=== PATIENT | female | born 1965 | race Caucasian/White ===

== ENCOUNTER 2021-09-01 14:45 | Outpatient (REF) | payer SELFPAY ==
--- NOTE | 2021-09-07 09:58 | MHC.AU.ANO ---
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 Cindy reports she has had hearing problems since childhood related to ear infections, placement of pressure equalization tubes, and history of right tympanic membrane reconstructive surgery. Binaural hearing aids were fit many years ago, but she has not worn them in years. Cindy has contacted [facility] to determine if she may be eligible for new hearing aids through this program. Does patient feel they have a hearing loss?: Yes If Yes, Which Ear?: Both Ears Has hearing been tested previously?: Yes Previous Hearing Test Results: Not available for review Hearing Handicap Inventory: HHIE SCORE: 34 Based on HHIE score, patient has: Severe perceived hearing handicap Ear History: Family History of Hearing Loss?: Yes: Brother Ear Infections in Childhood: Both Ears Previous Ear Surgery: Right Tympanoplasty Bothersome Tinnitus/Ringing/Noises in Ears: Both Ears Ear used on the phone: Left Ear History of occupational noise exposure?: No Medical History: Medical History: High Blood Pressure Allergies: Penicillin Medication List: Lisinopril, Atenolol, Bupropion, Venlafaxine. Lorazepam and a sleep medication - PRN Otoscopy: Right Ear: Tympanic membrane scarring with partially occluding cerumen Left Ear: Unremarkable Tympanometry: Tympanometry performed due to: To assess integrity of the middle ear system Right Ear: Non-compliant Middle Ear System (Type B) Left Ear: Hypercompliant Middle Ear System (Type Ad) Otoacoustic Emissions Frequency Range Used: 1.6-8 kHz Right Ear Results: Absent Emissions Analysis: Reduced/absent emissions may be consequence of middle ear dysfunction Left Ear Results: Absent Emissions Analysis: Reduced/absent emissions may be consequence of middle ear dysfunction Hearing Evaluation: Transducer(s) Used: Insert Earphones Bone Conduction Method: Conventional Audiometry Stimuli Used: Pure Tones Right Ear: Description of Hearing: Moderate dropping to severe mixed hearing loss. Left Ear: Description of Hearing: Normal hearing thresholds 250-1000 Hz dropping to a moderately-severe mixed hearing loss. Speech Recognition Threshold (SRT): Method Used: Monitored Live Voice Stimuli Used: Spondee Words Right Ear: 40 dB HL Left Ear: 20 dB HL Word Discrimination: Method: Recorded Lists Word Lists Used: NU-6 Right Ear: 92% at 80 dB HL Left Ear: 96% at 60 dB HL Interpretation of Results: This asymmetric hearing loss which is greatest in the high frequencies causes difficulty understanding speech as the important consonant sounds needed to differentiate similar sounding words cannot be heard with this loss. In addition to the hearing loss. Cindy's medication, Venlafaxine, may slow auditory processing speed and increase speech understanding difficulties. Recommendations: - Referral to Ear, Nose, and Throat is recommended to determine if any medical treatment may improve the conductive component of the loss or if amplification is recommended. - Trial with amplification is recommended if the mixed loss cannot be medically improved.. - Medical clearance from a physician is required before fitting. - After obtaining medical clearance for hearing aids, a Hearing Aid Evaluation appointment should be scheduled. - Will send a copy of the audiologic report to [facility] ([facility]). [employer] insurance may have hearing aid benefits. If [facility] is covering any portion of of the Hearing Aid Evaluation and/or Hearing Aids, a Prior Authorization will need to be obtained from [facility]. Diagnosis: Primary Diagnosis: H90.6 Mixed Hearing Loss, Bilateral Secondary Diagnosis: H69.93 Unspecified Eustachian Tube Dysfunction, Bilateral Services Performed: Comprehensive Audiological Evaluation (CPT 44903) Diagnostic Otoacoustic Emissions (CPT 44909, 26+TC) Tympanometry (CPT 64556) Signature: Provider: Mona Xiong, [facility]
== END 2021-09-01 14:46 | disposition home or self-care (01) ==
LOC: HO.SH 14:45
PROVIDERS: Visit Provider Hospitalist
DX: H90.6 Mixed conductive and sensorineural hearing loss, bilateral (principal); H69.93 Unspecified Eustachian tube disorder, bilateral
CPT/HCPCS: 92557; 92567; 92588

== ENCOUNTER 2022-09-12 14:49 | Outpatient (REF) | payer OTHER, SELFPAY | END 2022-09-12 14:50 | disposition home or self-care (01) | LOC: HO.HAP 14:49 | PROVIDERS: Visit Provider Hospitalist | DX: Z46.1 Encounter for fitting and adjustment of hearing aid (principal); H90.3 Sensorineural hearing loss, bilateral | CPT/HCPCS: V5261 ==

== ENCOUNTER 2022-10-11 12:31 | Outpatient (REF) | payer SELFPAY | END 2022-10-11 12:32 | disposition home or self-care (01) | LOC: HO.HAP 12:31 | PROVIDERS: Visit Provider Hospitalist | DX: Z13.89 Encounter for screening for other disorder (principal) ==